=== PATIENT | male | born 1990 | race Caucasian/White ===

== ENCOUNTER → 2020-12-09 14:50 | Outpatient (CLI) | payer OTHER, SELFPAY ==
[2020-12-13 10:44] LABS: Covid-19 Nasal PCR Sendout P&C POSITIVE
== END ==
PROVIDERS: PCP Family Medicine; Visit Provider Physician Assistant
DX: U07.1 COVID-19 (principal)
CPT/HCPCS: U0004

== ENCOUNTER → 2020-12-27 14:59 | Outpatient (CLI) | payer OTHER, SELFPAY ==
--- NOTE | 2020-12-27 14:59 | US_ITS ---
PROCEDURE: US EXTREMITY RT LIMITED CLINICAL INDICATION: lipoma X 2 around knee Palpable abnormality around the right knee COMPARISON: No exams were available for comparison FINDINGS: Along the posterior aspect of the right knee there is a abnormality which measures 2 x 0.7 cm isoechoic in nature with some internal linear areas of increased echogenicity consistent with a lipoma. Second palpable area more medial measures 4 by 3.5 x 1 cm also consistent with a lipoma. IMPRESSION: Palpable abnormalities along the posterior aspect of the right knee are consistent with lipomas. Dictated by: Eddi Liang MD 12/28/2020 06:52 Eddi Liang MD in [place] 12/28/2020 06:52
== END ==
PROVIDERS: PCP Family Medicine; Visit Provider Surgery
DX: D17.9 Benign lipomatous neoplasm, unspecified (principal)
CPT/HCPCS: 76882

== ENCOUNTER 2021-02-21 14:37 | Emergency (ER) | payer OTHER, SELFPAY ==
--- NOTE | 2021-02-21 14:43 | XR_ITS ---
PROCEDURE: XR WRIST LT MIN 3V CLINICAL INDICATION: INJURY Pain COMPARISON: No exams were available for comparison FINDINGS: No fracture or dislocation. No lytic or blastic change. There is normal mineralization. The joint spaces are well-preserved. No significant degenerative/arthritic changes. No erosive changes evident. Other findings:None. IMPRESSION: No acute findings. Dictated by: Eddi Liang MD 02/21/2021 16:41 Eddi Liang MD in [place] 02/21/2021 16:41
[2021-02-21 14:47] VITALS: BP 154/95; PULSE 78; RESP 16; O2SAT 99; BMI 35.2
--- NOTE | 2021-02-21 15:24 | PC.NURSE ---
RADIOLOGY CALLED AT 1443, SECOND CALL MADE RADIOLOGY CAME TO GET PATIENT AT 1524
--- NOTE | 2021-02-21 15:38 | HMH.EDUTC ---
[facility] [place] Disposition Clinical Impression: Left wrist sprain Qualifiers: Encounter type: initial encounter Qualified Code(s): S63.502A - Unspecified sprain of left wrist, initial encounter Disposition: Home, Self-Care Condition on Discharge: Good Instructions: Wrist Sprain, DI for Wrist Sprain Additional Instructions: Rest the extremity, apply ice for 15 minutes as tolerated three or four times per day, Elevate the extremity as tolerated while you are resting. Take ibuprofen for pain. I sent in a prescription to your pharmacy. Follow up with Dr. Sena (orthopedics). Sometimes there can be fractures that don't show up well on the first set of x-rays. So, you should follow up if you continue to have symptoms. I put in a referral but you need to call his office and schedule an appointment. Follow up with your regular doctor. GO TO THE ER FOR ANY WORSENING SYMPTOMS Prescriptions: Ibuprofen [Ibuprofen 800mg Tablet] 800 mg PO Q8HP PRN #30 tab PRN Reason: Moderate Pain Transmission Status: Received by [facility] Referrals: PCP,Dolly [Primary Care Provider] - Kurt Sena MD [Staff Physician] - Time of Disposition: 15:45 Medical Decision Making - Medical Records Medical records reviewed: No: I reviewed the patient's medical records. - John Inquiry Pt receiving controlled substance: No Vital Signs: 02/21/21 14:47 02/21/21 15:44 Temperature 98 F Pulse Rate 79 Pulse Rate [Right] 78 Respiratory Rate 16 16 Blood Pressure 142/90 H Blood Pressure [Right Arm] 154/95 H Blood Pressure Mean [Right Arm] 114 Blood Pressure Source [Right Arm] Automatic Cuff Blood Pressure Position [Right Arm] Sitting 02 Sat by Pulse Oximetry 99 [facility] [place] HPI - General Stated complaint: AO [id number] left wrist injury Time Seen by Provider: 02/21/21 14:50 Mode of Arrival: Ambulatory Source of Information: Patient Limitations: No Limitations Description of Symptoms (Recalled from Triage Doc. by RN): pt states he was swinging a bat sunday and his L wrist popped. when he holds it straight and still there is no pain. when he tries to move it the pain is sharp 10/10. HEENT Symptoms (Recalled from RN notes): No Resp Symptoms (Recalled from RN notes): No Skin Symptoms (Recalled from RN notes): No MS Symptoms (Recalled from RN notes): Yes (L wrist pain) Functional Status (Recalled from RN notes): na - History of Present Illness Provider Complaint: He states that he has was swinging a baseball bat 3 days ago and felt a pop in his left wrist. Since then he has had pain with moving the wrist and pronation/supanation. - Related Data Previous Rx's Medication Instructions Recorded Ibuprofen [Ibuprofen 800mg 800 mg PO Q8HP PRN #30 tab 02/21/21 Tablet] Allergies Allergy/AdvReac Type Severity Reaction Status Date / Time No Known Allergies Allergy Verified 02/02/21 15:27 - Worker's Comp Is this a Worker's Comp case?: No [facility] History - Hepatitis A Screen Drug use history?: No High risk sexual behaviors?: No History of sexually transmitted infection?: No Currently employed?: No Childcare worker?: No Do you have indoor plumbing?: Yes Do you have electricity?: Yes Attestation statement:: This patient has been screened for Hepatitis A risk factors. I have reviewed the patient's past medical history: Yes Medical History: Denies:: Cancer, Diabetes Mellitus Type 1, Diabetes Mellitus Type 2, Internal Pacemaker, Lung Disease, MRSA, Seizures Other Surgeries: Yes: No Previous Surgery, Other. No: Pacemaker Amputation: No Fractures: No - Social History Smoking Status: Unknown if ever smoked Alcohol Intake: never Alcohol Intake Frequency:: a few times a week Substance Use Type: denies use Occupational Status: employed Housing: house Household Members: spouse, family Family Hx:: Cancer, Hypertension ROS Obtained: Yes All systems reviewed & no additional complaints - Constitutional Consti
[2021-02-21 15:44] VITALS: BP 142/90; PULSE 79; RESP 16; TEMP 36.6
== END 2021-02-21 15:48 | disposition home or self-care (01) ==
PROVIDERS: Emergency Provider Nurse Practitioner Family
DX: S63.502A Unspecified sprain of left wrist, initial encounter (principal); X50.0XXA Overexertion from strenuous movement or load, initial encounter; Y93.59 Activity, other involving other sports and athletics played individually; Y92.89 Other specified places as the place of occurrence of the external cause
CPT/HCPCS: 29125; 73110; 99202; G0463

== ENCOUNTER → 2021-06-27 15:57 | Outpatient (CLI) | payer OTHER, SELFPAY | PROVIDERS: Visit Provider Surgery | DX: Z01.812 Encounter for preprocedural laboratory examination (principal); Z11.52 Encounter for screening for COVID-19 | CPT/HCPCS: U0003 ==

== ENCOUNTER 2021-06-28 12:18 | Day surgery (SDC) | payer OTHER, SELFPAY ==
[2021-06-27 07:29] VITALS: BMI 33.2
[2021-06-28] VITALS (9 sets, daily range): BP systolic 109–130; BP diastolic 65–80; PULSE 70–88; RESP 12–18; TEMP 36.4–36.8; O2SAT 98–100
--- NOTE | 2021-06-28 14:05 | P.PN_ITS ---
[facility] Anesthesia Checklist - Structural Data Admitted From: Home Planned Operative Procedure/s: excision neoplasm r knee Consent for Planned Operative Procedure(s) Verified: Yes - Additional verifications Anesthesia Reactions: No Hx Blood Transfusions: No Blood Transfusion Reaction: No - Airway Assessment C-Spine Mobility Assessed: Yes TMJ Mobility Assessed: Yes Dentition: Good Dentition - Neurological Assessment Level of Consciousness: Awake, Alert, Appropriate - Anesthesia Plan Anesthesia Risk discussed: Yes Anesthesia Plan: Verified ASA Class: I Anesthesia Type: General [facility] History I have reviewed the patient's past medical history: Yes Medical History: Denies:: Cancer, Diabetes Mellitus Type 1, Diabetes Mellitus Type 2, Internal Pacemaker, Lung Disease, MRSA, Seizures *Have you ever received a pneumonia vaccine?: No *Have you received a flu vaccine this season?: Yes Other Medical History: Denies: Blood Transfusion Reaction Anesthesia experience/problems:: none Other Surgeries: Yes: No Previous Surgery, Other. No: Pacemaker Amputation: No Fractures: No - *Social History Last grade of school completed: Some college Smoking Status: Never smoker Alcohol Intake: current Alcohol Intake Frequency:: a few times a week Substance Use Type: denies use *Occupational Status:: employed Housing: house Household Members: spouse, family *Travel in the last 8 weeks: None Family Hx:: Cancer, Hyperlipidemia, Hypertension
--- NOTE | 2021-06-28 14:06 | HMH.ANESI ---
[facility] Anesthesia Record Part I Intake, IV Amount: 1,000 Estimated blood loss (mL): 0 Urine output (mL): 0 Blood Pressure: 122/73 SaO2: 98 Pulse Rate: 70 Respiratory Rate: 12 Temperature: 97.5 F Patient is:: Awake, Stable Stable to PACU at:: 14:00
--- NOTE | 2021-06-28 14:06 | HMH.OPNOTE ---
Date of procedure: 06/28/21 Pre-op Diagnosis:: Lipoma X2 posterior right knee Post-op Diagnosis:: Same Procedure performed:: Excision of lipomas from posterior right knee (excisional length 3.0 cm and 4.0 cm with intermediate complex closure) Surgeon:: Jeovanny Marquez MD COLLISION TECHNICIAN:: Jas Rutherford Anesthesia: GETA Estimated blood loss (mL): 5 Operative findings:: Consistent with a well circumscribed somewhat lobulated lipomatous Operative note:: Patient was taken to the operating room. He was given preoperative intravenous antibiotics. In the operating room he was placed in a supine position. General anesthesia was induced. He was positioned in left lateral position. The area was prepped and draped in the standard surgical fashion. Attention was first turned to the more lateral lipoma which was near the biceps femoris tendon. This was the one that was more symptomatic. Transverse incision was made. Dissection was carried down carefully through superficial subcutaneous tissues. Relatively well-circumscribed mildly firm somewhat lobulated adipose tissue consistent with lipoma was encountered. With some blunt dissection and use of Metzenbaum dissection this was shelled out and removed in its entirety intact. It was sent off as a specimen. There was good hemostasis. Local anesthetic was infiltrated. Deep dermal tissues were closed with interrupted 2-0 Vicryl. Skin was closed with 4-0 Monocryl in a subcuticular fashion. Next attention was turned to the larger more medial lipoma. Transverse incision was made approximately 4 cm. Dissection was carried down through skin and superficial subcutaneous tissues. Firm well-circumscribed lobulated adipose tissue was once again encountered. With some blunt dissection as well as Metzenbaum dissection it was dissected free and removed intact in its entirety. Local anesthetic was infiltrated. There was good hemostasis. Deep dermal tissues were closed with interrupted 2-0 Vicryl. Skin was closed with 4-0 Monocryl in a subcuticular fashion. Dermabond was applied and Steri-Strips were applied longitudinally on the incisions. Clean dry sterile dressing was applied. Condition: stable Disposition: PACU Specimens:: Lipomas Complications:: None immediately apparent
--- NOTE | 2021-06-28 14:33 | SUR.PHASEI ---
1432- detailed report given to keely lang. Pt in stable condition.
--- NOTE | 2021-06-29 10:59 | HMH.ANESII ---
[facility] Anesthesia Record Part II Discharge Time: 14:32 Destination: Surgical Day Care (OP Surgery) PACU nurse assessment reviewed?: Yes Patient Condition:: Good Anesthesia Complications:: None Swallowing reflex intact?: Yes Cyanosis?: No Blood Pressure: 109/65 Pulse Rate: 78 Temperature: 97.6 F Mental Status: Alert & Oriented Pain level:: 0 Nausea and/or vomitting:: None Intake, IV Amount: 0
[2021-06-29 11:00] VITALS: BP 109/65; PULSE 78; TEMP 36.4
== END 2021-06-28 15:03 | disposition home or self-care (01) ==
LOC: OR 12:20
PROVIDERS: Visit Provider Surgery
PROC: (CPT 11404; principal; 2021-06-28 12:45)
DX: D17.23 Benign lipomatous neoplasm of skin and subcutaneous tissue of right leg (principal); Z80.9 Family history of malignant neoplasm, unspecified; Z82.49 Family history of ischemic heart disease and other diseases of the circulatory system; Z83.438 Family history of other disorder of lipoprotein metabolism and other lipidemia
CPT/HCPCS: 11404; 12031 ×2; 11403; 96374; J2405

== ENCOUNTER → 2021-10-21 08:00 | Outpatient (CLI) | payer OTHER, SELFPAY ==
[2021-10-21 08:29] LABS: Coronavirus 19, PCR Not Detected (NotDetected); Influenza A, PCR Not Detected (NotDetected); Influenza B, PCR Not Detected (NotDetected)
== END ==
PROVIDERS: Visit Provider Nurse Practitioner Family
DX: Z20.822 Contact with and (suspected) exposure to COVID-19 (principal)
CPT/HCPCS: C9803; U0003; U0005

== ENCOUNTER 2022-05-17 15:36 | Emergency (ER) | payer OTHER, SELFPAY ==
[2022-05-17 15:40] VITALS: BP 145/78; PULSE 73; RESP 18; TEMP 36.6; O2SAT 98; BMI 33.7
--- NOTE | 2022-05-17 15:57 | HMH.EDUTC ---
[facility] [place] Clinical Impression: URI (upper respiratory infection) Qualifiers: URI type: unspecified URI Qualified Code(s): J06.9 - Acute upper respiratory infection, unspecified Disposition: Home, Self-Care Condition on Discharge: Good Instructions: Sore Throat Additional Instructions: *Monitor Temp, Over the counter Motrin or Tylenol as directed/as needed Tylenol every 4 hours and Motrin every 6 hours (as long as your family doctor has told you that you can take it) for fever or pain. and straight to ER if unable to lower temp less than 101.0 after medication given *Warm salt water gargles may help to soothe the throat *Throat Lozenges *Warm fluids like tea with honey may help to soothe the throat *Sleep elevated *Humidifier/Vaporizer Your throat swab was sent for culture. Those results are typically sent to your primary care. Be sure to follow up in 2-3 days with your family doctor/primary care physician if no improvement so they can review those result and treat if necessary. If you don?t have a primary care doctor, I recommend you get one but in the mean time, you will have to return to a walk in clinic Follow up IMMEDIATELY for new or worsening symptoms or no Noticeable improvement over the next 48-72 hours. 911 for difficulty breathing or swallowing Referrals: Provider,Referral, MD [Primary Care Provider] - As needed Time of Disposition: 19:19 Medical Decision Making - John Inquiry Pt receiving controlled substance: No John was queried for this patient: No Vital Signs: 05/17/22 15:40 05/17/22 16:51 Temperature 97.9 F 97.9 F Temperature Source Oral Pulse Rate 73 Pulse Rate [Right Brachial] 73 Respiratory Rate 18 18 Blood Pressure 145/78 H Blood Pressure [Right Arm] 145/78 H Blood Pressure Mean [Right Arm] 100 Blood Pressure Source [Right Arm] Automatic Cuff Blood Pressure Position [Right Arm] Sitting 02 Sat by Pulse Oximetry 98 Oxygen Delivery Method Room Air - Lab Data Lab results reviewed: Yes: I reviewed the patient's lab results. Lab Results 05/17/22 15:45: Group A Strep Rapid Negative Orders (Tests/Meds): ED MEDICATIONS Discontinued Medications Generic Name Dose Route Start Last Admin Trade Name Freq PRN Reason Stop Dose Admin Ceftriaxone Sodium 1 gm 05/17/22 16:40 06/29/22 16:45 Ceftriaxone 1gm Vial IM 05/17/22 16:41 1 gm ONCE ONE Administration Lidocaine HCl 0 ml 05/17/22 16:40 05/17/22 16:45 Lidocaine 1% 5ml Pf Vial IM 05/17/22 16:41 2 ml ONCE ONE Administration Methylprednisolone Sodium Succinate 125 mg 05/17/22 16:38 05/17/22 16:45 Methylprednisolone Sod Succ 125mg Vial IM 05/17/22 16:39 125 mg ONCE ONE Administration ORDERS Category Date Time Status Strep Screen Confirmation Stat Micro 05/17/22 15:45 Received [facility] [place] HPI - General Stated complaint: sore throat Time Seen by Provider: 05/17/22 15:57 Mode of Arrival: Ambulatory Source of Information: Patient Limitations: No Limitations Description of Symptoms (Recalled from Triage Doc. by RN): PATIENT C/O SORE THROAT X 4 DAYS HEENT Symptoms (Recalled from RN notes): Yes Resp Symptoms (Recalled from RN notes): No Skin Symptoms (Recalled from RN notes): No MS Symptoms (Recalled from RN notes): No Functional Status (Recalled from RN notes): WNL - History of Present Illness Provider Complaint: Patient states that he has been having sore throat for about 4-5 days States it has continued to get worse States that he first thought it may have been allergies but now concerned he may have strep throat - Related Data Allergies Allergy/AdvReac Type Severity Reaction Status Date / Time No Known Allergies Allergy Verified 06/28/21 11:29 - Worker's Comp Is this a Worker's Comp case?: No [facility] History - Hepatitis A Screen Attestation statement:: This patient has been screened for Hepatitis A risk factors. I have reviewed the patient's past medical
--- NOTE | 2022-05-17 16:25 | PC.NURSE ---
SPOKE WITH ANGIE FROM LAB R/T WHEN STREP TEST WILL BE RESULTED; SHE STATES 5 MINUTES.
[2022-05-17 16:36] LABS: Strep Scrn Group A (Rapid) Negative (Negative)
[2022-05-17 16:51] VITALS: BP 145/78; PULSE 73; RESP 18; TEMP 36.6; O2SAT 98
== END 2022-05-17 16:55 | disposition home or self-care (01) ==
PROVIDERS: Emergency Provider Nurse Practitioner
DX: J06.9 Acute upper respiratory infection, unspecified (principal)
CPT/HCPCS: 87430; 96372; 99212; G0463; J0696